=== PATIENT | female | born 1970 | race Caucasian/White ===

== ENCOUNTER 2019-10-28 20:13 | Outpatient (CLI) | payer SELFPAY ==
[2019-10-28 20:25] VITALS: BP 206/127; PULSE 93; RESP 22; TEMP 37.2; O2SAT 93; BMI 48.4
--- NOTE | 2019-10-28 20:29 | CTR_ITS ---
PROCEDURE INFORMATION: Exam: CT Head Without Contrast Exam date and time: 10/28/2019 8:44 PM Age: 48 years old Clinical indication: Patient HX: Dizziness w R ear discomfort x 1 week; Additional info: Dizzy TECHNIQUE: Imaging protocol: Computed tomography of the head without contrast. Total DLP: 889.07 mGy-cm Radiation optimization: All CT scans at this facility use at least one of these dose optimization techniques: automated exposure control; mA and/or kV adjustment per patient size (includes targeted exams where dose is matched to clinical indication); or iterative reconstruction. COMPARISON: CT head wo con* [id number] 08/26/2015 4:11 AM FINDINGS: Brain: Normal. No hemorrhage. Unremarkable white matter. No mass effect. Ventricles: Normal. No ventriculomegaly. Bones/joints: Unremarkable. No acute fracture. Sinuses: Visualized sinuses are unremarkable. No fluid levels. Mastoid air cells: Visualized mastoid air cells are well aerated. Soft tissues: Unremarkable. CT/CT head wo con* [id number] IMPRESSION: No acute intracranial abnormality. Radiation Dose CTDIVOL = (mGy): DLP = 889.07 (mGy-cm)
--- NOTE | 2019-10-28 20:29 | XR_ITS ---
WS: [id number] PORTABLE CHEST HISTORY: sob COMPARISON: 08/20/2019 Lungs are clear and well expanded. No pleural effusion or pneumothorax. Cardiac size: Normal. Mediastinum/Aorta: Normal mediastinum. No osseous abnormality seen. XR/XR chest 1V portable [id number] IMPRESSION: Unremarkable portable chest.
--- NOTE | 2019-10-28 20:29 | ECG_ITS ---
Measurements Intervals [place] Rate: 87 P: 39 NE: 165 QRS: 0 QRSD: 112 T: 57 QT: 428 QTc: 515 SINUS RHYTHM WITH OCCASIONAL VENTRICULAR PREMATURE COMPLEXES POSSIBLE ANTERIOR MYOCARDIAL INFARCTION [30 ms Q WAVE IN V3/V4, OR R < 0.2 mV IN V V4], OF INDETERMINATE AGE Compared to ECG 08/21/2019 04:36:31 Ventricular premature complex(es) now present Myocardial infarct finding now present Intraventricular conduction delay no longer present T-wave abnormality no longer present Prolonged QT interval no longer present Electronically Signed On 10-28-2019 22:24:48 DOUBLE REAMER OPERATOR by Svetlana Marie M.D. [email or web address]
--- NOTE | 2019-10-28 20:31 | ED_ITS ---
Entered by Mari Jauregui, acting as scribe for Oscar Worthy DO HPI - SOB/Dyspnea General: Chief Complaint: Shortness of Breath/Dyspnea Stated Complaint: SOB, DIZZY Time Seen by Provider: 10/28/19 20:27 Source: patient Mode of arrival: ambulatory Limitations: no limitations History of Present Illness: HPI Narrative: 48 yo f came to the er for sob and dizziness. Onset was 5 days ago. Pt states that she has been sick since last . Pt states that has had a cough, fever, sob and dizziness. MD elicited complaint: shortness of breath Pertinent past history: other (hypertension) Onset (ago): day(s) (5 days ago) Context: recent illness Severity: moderate Exacerbating factors: nothing Relieving factors: nothing Associated symptoms: Reports chest pain, cough, dizziness, fever(s), orthopnea and palpitations; Deny abdominal pain or vomiting Treatment prior to arrival: none Related Data: Home oxygen amount: none Review of Systems General: Reports: other (negative unless marked ) Const: Reports: fever and body aches Eyes: Denies: change in vision ENMT: Reports: throat pain, painful swallowing, hoarseness and nasal congestion; Denies: bleeding gums Card: Reports: chest pain, palpitations, shortness of breath on exertion and shortness of breath when lying down; Denies: edema or swelling of feet/ankles Resp: Reports: shortness of breath, non-productive cough and wheezing; Denies: productive cough or stridor GI: Denies: abdominal pain or vomiting : Denies: flank pain or difficulty urinating Neuro: Reports: dizziness PFSH ED 2 PFSH: Statuses (acute, chronic, etc) shown below reflect problem list status as previously entered and may not be historically accurate Social History Smoking and tobacco status: former smoker Physical Exam Const: GENERAL APPEARANCE: well developed ORIENTATION/CONSCIOUSNESS: Yes oriented to person, Yes oriented to place and Yes oriented to time HENMT: COMMON NORMALS: normocephalic, external ears normal and external nose normal HEAD & SCALP: normocephalic; no scalp tenderness FACE & SINUS: normal facial exam NOSE: external nose normal and no nasal discharge EXTERNAL EAR: Yes external ears normal MOUTH: tongue normal TEETH & GINGIVA: no abnormal tooth and associated gingiva THROAT: posterior oropharynx abnormal erythema; no exudates; no peritonsillar mass Eye: COMMON NORMALS: PERRL, EOMs intact bilaterally and conjunctivae normal EYELID: eyelids normal CONJUNCTIVA: Yes conjunctivae normal PUPIL: Yes PERRL Chest: COMMONS NORMALS: inspection of chest normal CHEST: No tenderness Resp: COMMON NORMALS: clear to auscultation bilaterally EFFORT & INSPECTION: Yes tachypneic AUSCULTATION: clear to auscultation bilaterally and diminished lung sounds bilateral Cardio: COMMON NORMALS: regular rate and regular rhythm RATE: regular rate RHYTHM: regular rhythm HEART SOUNDS: no murmurs PERIPHERAL PULSES: radial pulses present GI: INSPECTION: No abdominal distension AUSCULTATION: No hyperactive bowel sounds and No hypoactive bowel sounds PALPATION: No guarding and No rigid PERCUSSION: no dullness to percussion and no tympanic to percussion : COMMON NORMALS: Yes no CVA tenderness BLADDER/KIDNEY EXAM: Yes no CVA tenderness Back/Pelvis: COMMON NORMALS: no CVA tenderness Neuro: SENSORIUM/ORIENTATION: Yes oriented to person, Yes oriented to place and Yes oriented to time Psych: COMMON NORMALS: mental status grossly normal Skin: COMMON NORMALS: no rashes or lesions noted GENERAL SKIN EXAM: no rashes or lesions noted Course Vital Signs: Vital signs: Vital Signs Temperature 98.9 F 10/28/19 20:25 Pulse Rate 93 10/29/19 00:35 Respiratory Rate 20 H 10/29/19 00:35 Blood Pressure 175/96 10/29/19 00:35 Pulse Oximetry 93 10/29/19 00:35 MDM - SOB/Dyspnea MDM Narrative: Medical decision making narrative: 48-year-old female presents with shortness of breath, mild respiratory distress, body aches and fever. She is much improved after DuoNeb treatment. She has received Solu-Medrol and doxyc ycline. Her troponin did not elevate. Her EKGs did not show ST changes acutely. Her d-dimer, however, was significantly elevated. CTA of the chest was performed and was negative for infiltrate or PE. Flu swabs were negative. She will be treated for bronchitis with asthma exacerbation Lab Data: Labs: Lab Results 10/28/19 10/28/19 10/28/19 Range/Units 20:35 20:35 20:35 WBC 11.7 H (4.0-10.0) 10^3/ uL RBC 4.62 (4.1-5.3) 10^6/u L Hgb 11.9 (11.5-15.3) g/dL Hct 39.1 (37.0-47.0) % MCV 84.6 (81-99) fL MCH 25.8 L (28.0-34.0) pg MCHC 30.4 (30.0-36.0) g/dL RDW 14.7 (12.1-15.1) % Plt Count 397 (130-400) 10^3/c mm MPV 9.5 (7.4-10.4) fL Neut % (Auto) 67.2 % Lymph % (Auto) 20.5 % [place] % (Auto) 7.1 % Eos % (Auto) 4.3 % Baso % (Auto) 0.5 % Neut # (Auto) 7.9 H (1.8-7.7) 10^3/u L Lymph # (Auto) 2.4 (0.8-4.8) 10^3/u L [place] # (Auto) 0.8 (0.2-0.9) 10^3/u L Eos # (Auto) 0.5 (0.0-0.8) 10^3/u L Baso # (Auto) 0.1 (0.0-0.1) 10^3/u L Nucleated RBC % (a uto) 0 % Nucleated RBCs # 0.0 /100WBC PT 13.20 (10.5-13.3) SECO NDS INR 0.97 (0.8-1.2) APTT 27.7 (23.9-36.7) SECO NDS D-Dimer 1.24 H (0-0.59) ug/mIFE U Sodium 139 (136-145) mmol/L Potassium 4.3 (3.5-5.1) mmol/L Chloride 98 (98-107) mmol/L Carbon Dioxide 27 (22-29) mmol/L Anion Gap 18.3 (5-19) BUN 12 (6-20) mg/dL Creatinine 0.9 (0.5-0.9) mg/dL GFR Calculation 66.5 L (90-130) mL/min Glucose 164 H (65-115) mg/dL Calcium 9.4 (8.5-10.5) mg/dL Total Bilirubin 0.3 (0.15-1.2) mg/dL AST 20 (0-32) U/L ALT 22 (0-33) U/L Alkaline Phosphata se 133 H (35-105) IU/L Troponin T Baselin e (0-10) ng/mL Troponin T 120 Min [place] (0-10) ng/mL Delta Troponin T (0-10) ABS# NT-Pro-B Natriuret Pep 2971 H (0-125) pg/mL Total Protein 7.4 (6.6-8.7) g/dL Albumin 3.8 (3.5-5.2) g/dL Globulin 3.6 (1.3-4.6) g/dL Influenza Type A A g (Negative) POC Influenza B Ag (Negative) 10/28/19 10/28/19 10/28/19 Range/Units 20:35 20:45 22:33 WBC (4.0-10.0) 10^3/ uL RBC (4.1-5.3) 10^6/u L Hgb (11.5-15.3) g/dL Hct (37.0-47.0) % MCV (81-99) fL MCH (28.0-34.0) pg MCHC (30.0-36.0) g/dL RDW (12.1-15.1) % Plt Count (130-400) 10^3/c mm MPV (7.4-10.4) fL Neut % (Auto) % Lymph % (Auto) % [place] % (Auto) % Eos % (Auto) % Baso % (Auto) % Neut # (Auto) (1.8-7.7) 10^3/u L Lymph # (Auto) (0.8-4.8) 10^3/u L [place] # (Auto) (0.2-0.9) 10^3/u L Eos # (Auto) (0.0-0.8) 10^3/u L Baso # (Auto) (0.0-0.1) 10^3/u L Nucleated RBC % (a uto) % Nucleated RBCs # /100WBC PT (10.5-13.3) SECO NDS INR (0.8-1.2) APTT (23.9-36.7) SECO NDS D-Dimer (0-0.59) ug/mIFE U Sodium (136-145) mmol/L Potassium (3.5-5.1) mmol/L Chloride (98-107) mmol/L Carbon Dioxide (22-29) mmol/L Anion Gap (5-19) BUN (6-20) mg/dL Creatinine (0.5-0.9) mg/dL GFR Calculation (90-130) mL/min Glucose (65-115) mg/dL Calcium (8.5-10.5) mg/dL Total Bilirubin (0.15-1.2) mg/dL AST (0-32) U/L ALT (0-33) U/L Alkaline Phosphata se (35-105) IU/L Troponin T Baselin e 11 H (0-10) ng/mL Troponin T 120 Min [place] 10.64 H (0-10) ng/mL Delta Troponin T -0.36 L (0-10) ABS# NT-Pro-B Natriuret Pep (0-125) pg/mL Total Protein (6.6-8.7) g/dL Albumin (3.5-5.2) g/dL Globulin (1.3-4.6) g/dL Influenza Type A A g Negative (Negative) POC Influenza B Ag Negative (Negative) Discharge Plan Discharge Patient Disposition: Home, Self-Care Clinical Impression: Asthma with exacerbation Qualifiers: Asthma severity: unspecified severity Asthma persistence: unspecified Qualified Code(s): J45.901 - Unspecified asthma with (acute) exacerbation Acute bronchitis Qualifiers: Bronchitis organism: unspecified organism Qualified Code(s): J20.9 - Acute bronchitis, unspecified Condition: Stable Prescriptions: New prednisone 20 mg tablet 40 mg PO DAILY Qty: 10 RF: 0 doxycycline hyclate 100 mg capsule 100 mg PO BID 7 Days Qty: 14 RF: 0 Discharge Orders: Discharge Order (Routine); Ordered 10/29/19 Ordered By: Oscar Worthy Referrals: Romaine Glynn MD [Primary Care Provider] - 1-3 days Discharge Diet: Usual diet Discharge Activity: Increase activity as tolerated Patient Instructions: Asthma (ED), Acute Bronchitis (ED) Activity Restrictions/Additional Instructions: Return for worsening shortness of breath despite treatment, fever greater than 100 despite 2-3 doses of antibiotics, other concerning symptoms. Discharge Date/Time: 10/29/19 00:37 Coding Level of Care Code ED Peat Shredder Tender for Roopa Iqbal The documentation recorded by the Juventino cornelius Stephanie Lyn, accurately reflects the service I personally performed and the decisions made by Deacon hernandez Jeremy John, DO Oct 28, 2019 20:13
[2019-10-28 20:51] LABS: Basophils # 0.1 10^3/uL (0.0-0.1); Basophils % 0.5 %; Eosinophils # 0.5 10^3/uL (0.0-0.8); Eosinophils % 4.3 %; Hematocrit 39.1 % (37.0-47.0); Hemoglobin 11.9 g/dL (11.5-15.3); Lymphocytes # 2.4 10^3/uL (0.8-4.8); Lymphocytes % 20.5 %; Mean Corpuscular HGB Conc 30.4 g/dL (30.0-36.0); Mean Corpuscular Hemoglobin 25.8 pg (28.0-34.0); Mean Corpuscular Volume 84.6 fL (81-99); Mean Platelet Volume 9.5 fL (7.4-10.4); Monocytes # 0.8 10^3/uL (0.2-0.9); Monocytes % 7.1 %; Neutrophils # 7.9 10^3/uL (1.8-7.7); Neutrophils % 67.2 %; Nucleated Red Blood Cells % 0 %; Platelet Count 397 10^3/cmm (130-400); Red Blood Count 4.62 10^6/uL (4.1-5.3); Red Cell Distribution Width 14.7 % (12.1-15.1); White Blood Count 11.7 10^3/uL (4.0-10.0)
[2019-10-28 20:59] LABS: INR 0.97 (0.8-1.2)
[2019-10-28 21:00] LABS: Partial Thromboplastin Time 27.7 SECONDS (23.9-36.7)
[2019-10-28 21:02] LABS: D Dimer 1.24 ug/mIFEU (0-0.59)
[2019-10-28] MEDS: ipratropium-albuterol 3 mL Neb INHALATION (21:06)
[2019-10-28 21:08] VITALS: PULSE 81; RESP 20; O2SAT 95
[2019-10-28] MEDS: amlodipine 10 mg Tablet PO (21:11)
[2019-10-28 21:13] VITALS: PULSE 84; RESP 20; O2SAT 97
[2019-10-28 21:13] LABS: Troponin(5th) Baseline 11 ng/mL (0-10)
[2019-10-28 21:20] LABS: Alanine Aminotransferase 22 U/L (0-33); Albumin Level 3.8 g/dL (3.5-5.2); Alkaline Phosphatase 133 IU/L (35-105); Anion Gap 18.3 (5-19); Aspartate Amino Transferase 20 U/L (0-32); Blood Urea Nitrogen 12 mg/dL (6-20); Calcium 9.4 mg/dL (8.5-10.5); Carbon Dioxide 27 mmol/L (22-29); Chloride 98 mmol/L (98-107); Globulin 3.6 g/dL (1.3-4.6); Glomerular Filtration Rate 66.5 mL/min (90-130); Glucose 164 mg/dL (65-115); NT Pro B Type Natriuretic Pept 2971 pg/mL (0-125); Potassium 4.3 mmol/L (3.5-5.1); Sodium 139 mmol/L (136-145); Total Bilirubin 0.3 mg/dL (0.15-1.2); Total Protein 7.4 g/dL (6.6-8.7)
[2019-10-28 22:14] LABS: Influenza A by IFA Negative (Negative); Influenza B by IFA Negative (Negative)
--- NOTE | 2019-10-28 22:22 | CTR_ITS ---
PROCEDURE INFORMATION: Exam: CT Angiography Chest With Contrast Exam date and time: 10/28/2019 11:16 PM Age: 48 years old Clinical indication: Cough and dyspnea; Prior surgery; Surgery date: 6+ months; Surgery type: Thyroid; Patient HX: SOB w cough; Additional info: Chest pain TECHNIQUE: Imaging protocol: Computed tomographic angiography of the chest with intravenous contrast. 3D rendering: MIP and/or 3D reconstructed images were created by the technologist. Total DLP: 578.51 mGy-cm Radiation optimization: All CT scans at this facility use at least one of these dose optimization techniques: automated exposure control; mA and/or kV adjustment per patient size (includes targeted exams where dose is matched to clinical indication); or iterative reconstruction. Contrast material: OMNI 350; Contrast volume: 95 ml; Contrast route: 20G; COMPARISON: CR XR chest 1V portable [id number] 10/28/2019 8:57 PM FINDINGS: Pulmonary arteries: Normal. No pulmonary emboli. Aorta: Unremarkable. No aortic aneurysm. No aortic dissection. Lungs: There is a 4.2 mm calcified nodularity seen in the right posterior medial hemithorax. Strandy opacities are seen in the lingula compatible with atelectasis versus parenchymal or pleural scarring. Pleural space: Unremarkable. No pneumothorax. No pleural effusion. Heart: Unremarkable. No cardiomegaly. No pericardial effusion. Gallbladder and bile ducts: Status post cholecystectomy. Lymph nodes: Unremarkable. No enlarged lymph nodes. Bones/joints: Unremarkable. No acute fracture. Soft tissues: Unremarkable. CT/CT angio chest PE protcl [id number] IMPRESSION: 1. There is no evidence for pulmonary emboli. 2. Calcified 4.2 mm nodularity in the right posterior medial hemithorax compatible with a benign granuloma. No further workup needed. Radiation Dose CTDIVOL = (mGy): DLP = 578.51 (mGy-cm)
--- NOTE | 2019-10-28 22:29 | ECG_ITS ---
Measurements Intervals [place] Rate: 81 P: 37 NC: 162 QRS: 2 QRSD: 114 T: 56 QT: 457 QTc: 533 SINUS RHYTHM POSSIBLE LEFT VENTRICULAR HYPERTROPHY [VOLTAGE CRITERIA PLUS LAE OR QRS WIDENING] POSSIBLE ANTERIOR MYOCARDIAL INFARCTION , PROBABLY OLD [30 ms Q WAVE IN V3/V4, Compared to ECG 10/28/2019 20:50:50 Ventricular premature complex(es) no longer present Myocardial infarct finding still present Electronically Signed On 10-29-2019 20:07:49 RADIO REPAIR TEACHER by Svetlana Marie M.D. [email or web address]
[2019-10-28 23:06] LABS: Troponin 5 2HR 10.64 ng/mL (0-10)
[2019-10-28 23:10] LABS: Troponin 5 2HR Delta -0.36 ABS# (0-10)
[2019-10-28] MEDS: iohexol 350 mg/mL 100 mL Btl IV (23:40)
[2019-10-29] MEDS: doxycycline 100 mg Tablet PO (00:16)
[2019-10-29 00:35] VITALS: BP 175/96; PULSE 93; RESP 20; O2SAT 93
== END 2019-10-29 00:38 | disposition home or self-care (01) ==
LOC: ER 10-29 00:13 → RAD 06-23 11:22 → ER 07-02 08:44
PROVIDERS: Emergency Provider Emergency Medicine; PCP Family Medicine; Visit Provider Family Medicine
DX: J45.901 Unspecified asthma with (acute) exacerbation (principal); J20.9 Acute bronchitis, unspecified; Z87.891 Personal history of nicotine dependence
CPT/HCPCS: 70450; 71045; 71046; 71275; 80053; 83880; 84484; 85025; 85378; 85610; 85730; 87804; 93005; 94640; 96374; 96375; 99283; 99284; J2930; Q9967

== ENCOUNTER → 2019-11-25 10:15 | Outpatient (BNVA) | payer SELFPAY | PROVIDERS: Family Provider Family Medicine; PCP Family Medicine; Visit Provider Nurse Practitioner | DX: J02.0 Streptococcal pharyngitis (principal); J02.9 Acute pharyngitis, unspecified | CPT/HCPCS: 87804; 87880 ==

== ENCOUNTER 2020-06-23 11:05 | Outpatient (CLI) | payer OTHER, SELFPAY ==
--- NOTE | 2020-06-23 11:25 | XR_ITS ---
NOTE: Report was unsigned for reason: Order was edited. Original Signature date and time was: 06/23/2020 1258 WS: [id number] XR chest 2V* [id number] REASON FOR EXAM: DYSPNEA FINDINGS: The chest is unchanged compared to previous examination of 10/28/2019. There is mild to moderate cardiomegaly. There is no active pulmonary parenchymal pleural disease. MTDD
== END 2020-06-23 11:06 | disposition home or self-care (01) ==
PROVIDERS: PCP Family Medicine; Visit Provider Family Medicine
DX: R06.00 Dyspnea, unspecified (principal)
CPT/HCPCS: 71046

== ENCOUNTER → 2022-04-05 15:43 | Outpatient (BNVA) | payer OTHER, SELFPAY | PROVIDERS: PCP Family Medicine; Visit Provider Family Medicine | DX: R71.8 Other abnormality of red blood cells (principal); E11.9 Type 2 diabetes mellitus without complications | CPT/HCPCS: 80053; 83036; 83550; 85025 ==

== ENCOUNTER → 2022-10-11 15:14 | Outpatient (BNVA) | payer OTHER, SELFPAY | PROVIDERS: PCP Family Medicine; Visit Provider Family Medicine | DX: E11.9 Type 2 diabetes mellitus without complications (principal); E53.8 Deficiency of other specified B group vitamins; R25.2 Cramp and spasm; D50.9 Iron deficiency anemia, unspecified; R00.2 Palpitations; H92.01 Otalgia, right ear; Z51.81 Encounter for therapeutic drug level monitoring | CPT/HCPCS: 80053; 82607; 83036; 83735; 85025 ==

== ENCOUNTER → 2023-02-03 15:10 | Outpatient (BNVA) | payer OTHER, SELFPAY | PROVIDERS: PCP Family Medicine; Visit Provider Family Medicine | DX: D50.9 Iron deficiency anemia, unspecified (principal); E11.9 Type 2 diabetes mellitus without complications; Z51.81 Encounter for therapeutic drug level monitoring | CPT/HCPCS: 80053; 83036; 83540; 85025 ==

== ENCOUNTER → 2023-08-17 10:39 | Outpatient (BNVA) | payer OTHER, SELFPAY | PROVIDERS: PCP Family Medicine; Visit Provider Family Medicine | DX: Z51.81 Encounter for therapeutic drug level monitoring (principal); E11.9 Type 2 diabetes mellitus without complications; Z13.220 Encounter for screening for lipoid disorders; E53.8 Deficiency of other specified B group vitamins; E03.9 Hypothyroidism, unspecified; R30.0 Dysuria; Z12.11 Encounter for screening for malignant neoplasm of colon | CPT/HCPCS: 80053; 80061; 81003; 82043; 82607; 83036; 84439; 84443; 85025 ==

== ENCOUNTER → 2025-05-23 13:15 | Outpatient (BNVA) | payer OTHER, SELFPAY | PROVIDERS: PCP Family Medicine; Visit Provider Family Medicine | DX: E55.9 Vitamin D deficiency, unspecified (principal); Z51.81 Encounter for therapeutic drug level monitoring; E53.8 Deficiency of other specified B group vitamins | CPT/HCPCS: 80048; 82306; 82607; 83735 ==